=== PATIENT | male | born 1995 | race Caucasian/White ===

== ENCOUNTER 2019-01-10 22:07 | Emergency (ER) | payer SELFPAY ==
[~2019-01-10] VITALS: Ht 177.8 cm; Wt 88.2 kg
[~2019-01-10 22:07] MED LIST: AMOX500C2 PO; NAPR-985 PO
[2019-01-10 22:13] VITALS: BP 144/74; PULSE 93; RESP 20; Ht 177.8 cm; Wt 88.2 kg
== END 2019-01-11 01:45 | disposition home or self-care (01) ==
LOC: FTE 22:07
DX: K08.89 Other specified disorders of teeth and supporting structures (principal)
CPT/HCPCS: 99283